=== PATIENT | male | born 1995 | race Caucasian/White ===

== ENCOUNTER 2017-06-10 13:28 | Emergency (ER) | payer OTHER ==
[~2017-06-10] VITALS: Ht 175.3 cm; Wt 68.2 kg
[2017-06-10] MEDS ORDERED: CLEO300C2 PO (15:28)
[2017-06-10 16:05] VITALS: BP 137/74
== END 2017-06-10 16:08 | disposition home or self-care (01) ==
LOC: M ED 13:28
DX: L03.211 Cellulitis of face (principal)

== ENCOUNTER 2017-06-12 11:14 | Emergency (ER) | payer OTHER ==
[~2017-06-12] VITALS: Ht 175.3 cm; Wt 72.7 kg
[~2017-06-12 11:14] MED LIST: CLEO300C2 PO
[2017-06-12 11:16] VITALS: BP 142/65
== END 2017-06-12 12:36 | disposition home or self-care (01) ==
LOC: M ED 11:14
DX: L03.211 Cellulitis of face (principal)

== ENCOUNTER 2018-12-20 10:36 | Emergency (ER) | payer OTHER ==
[~2018-12-20] VITALS: Ht 170.2 cm; Wt 71.5 kg
[2018-12-20] MEDS ORDERED: ACETAMINOPHEN 500 MG TAB PO ONE (11:00)
[2018-12-20] MEDS ORDERED: NS IV ONE (11:00)
[2018-12-20] MEDS ORDERED: DILUENT IV ONE (11:00)
[2018-12-20] MEDS ORDERED: diphenhydrAMINE INJ 50MG/ML VIAL (J1200) IV ONE (11:30)
[2018-12-20] MEDS ORDERED: KETOROLAC 30 MG/ML VIAL (J1885) IV ONE (11:30)
[2018-12-20] MEDS ORDERED: METOCLOPRAMIDE INJ 10MG/2ML VIAL (J2765) IV ONE (11:30)
[2018-12-20 12:05] LABS: BASO # 0.1 10^3/uL (0.0-0.2); BASO % 0.6 % (0.0-1.0); EOS # 0.1 10^3/uL (0.0-0.50); EOS % 0.7 % (0.0-3.0); HEMATOCRIT 37.9 % (42.0-52.0); HEMOGLOBIN 12.4 g/dl (13.5-17.5); LYMPH # 1.7 10^3/uL (1.5-6.5); LYMPH % 17.1 % (24.0-44.0); MEAN CORPUSCULAR HEMOGLOBIN 28.4 pg (27.0-33.0); MEAN CORPUSCULAR HGB CONC 32.7 g/dl (32.0-36.5); MEAN CORPUSCULAR VOLUME 86.9 fl (80.0-96.0); MONO # 1.2 10^3/uL (0.0-0.8); MONO % 11.4 % (0.0-5.0); NEUTROPHILS % 69.8 % (36.0-66.0); PLATELET COUNT, AUTOMATED 376 10^3/uL (150-450); RED BLOOD COUNT 4.36 10^6/uL (4.30-6.10); WHITE BLOOD COUNT 10.1 10^3/uL (4.0-10.0)
--- NOTE | 2018-12-20 12:12 | REP ---
CT BRAIN WITHOUT CONTRAST: CT brain performed without IV contrast. Ventricles are normal in size and position with no midline shift or mass effect. Jarvis-white differentiation is well maintained. There is no acute hemorrhage or extra-axial fluid collection. There is moderate fluid in the left sphenoid with an air-fluid level consistent with acute sinusitis. There is mild bilateral ethmoid sinusitis. IMPRESSION: Acute left sphenoid sinusitis. Mild sinusitis bilateral ethmoids. Otherwise negative noncontrast CT brain. Electronically Signed by Rob Jarvis MD 12/20/2018 03:47 P
[2018-12-20 12:25] LABS: BLOOD UREA NITROGEN 8 MG/DL (7-18); C REACTIVE PROTEIN QUANTITATIV 7.27 MG/DL (0.00-0.30); CALCIUM LEVEL 8.7 MG/DL (8.5-10.1); CARBON DIOXIDE LEVEL 31 MEQ/L (21-32); CHLORIDE LEVEL 104 MEQ/L (98-107); CREATININE FOR GFR 0.84 MG/DL (0.70-1.30); GLOMERULAR FILTRATION RATE > 60.0 (>60); GLUCOSE, FASTING 90 MG/DL (70-100); POTASSIUM SERUM 4.3 MEQ/L (3.5-5.1); SODIUM LEVEL 138 MEQ/L (136-145)
[2018-12-20 12:26] LABS: ERYTHROCYTE SEDIMENTATION RATE 60 mm/hr (0-15)
[2018-12-20 12:30] LABS: MONO SCRN NEGATIVE (NEGATIVE)
[2018-12-20 12:44] LABS: INFLUENZA A AMPLIFICATION NEGATIVE (NEGATIVE); INFLUENZA B AMPLIFICATION NEGATIVE (NEGATIVE)
[2018-12-20 13:13] VITALS: BP 124/60
--- NOTE | 2018-12-22 15:06 | ED PDOC ---
Post-Departure Follow-Up jasmin cordero faxed formal report of ct head for fu Dannielle Castro MD December 22, 2018 15:06
[2018-12-24 00:07] LABS: Lyme Disease IgG/IgM Antibodie <0.91 ISR (0.00-0.90); Lyme Disease IgM Ab Quantitati <0.80 index (0.00-0.79)
== END 2018-12-20 13:56 | disposition home or self-care (01) ==
LOC: M ED 10:36
DX: R51 Headache (principal)
CPT/HCPCS: 70450; 80048; 83605; 85025; 85652; 86140; 86308; 86617; 87040; 87502; 87880; 96374; 96375; 99284; J1200; J1885; J2765

== ENCOUNTER 2021-06-18 13:37 | Emergency (ER) | payer OTHER ==
[~2021-06-18] VITALS: Ht 172.7 cm; Wt 83.6 kg
--- OUTSIDE RECORDS SUMMARY | 2021-06-18 13:42 | CCD ---
Author Author [facility] Address Unknown Phone Unavailable Support Name Relationship Address Phone [facility] Next Of Kin [address] [address] Unavailable DELFIN SCHERER Next Of Kin [address] [place] [address] Re-disclosure Warning The records that you are about to access may contain information from federally-assisted alcohol or drug abuse programs. If such information is present, then the following federally mandated warning applies: This information has been disclosed to you from records protected by federal confidentiality rules (42 CFR part 2). The federal rules prohibit you from making any further disclosure of this information unless further disclosure is expressly permitted by the written consent of the person to whom it pertains or as otherwise permitted by 42 CFR part 2. A general authorization for the release of medical or other information is NOT sufficient for this purpose. The Federal rules restrict any use of the information to criminally investigate or prosecute any alcohol or drug abuse patient.The records that you are about to access may contain highly sensitive health information, the redisclosure of which is protected by Article 27-F of the [facility] Public Health law. If you continue you may have access to information: Regarding HIV / AIDS; Provided by facilities licensed or operated by the [facility] Office of Mental Health; or Provided by the [facility] Office for People With Developmental Disabilities. If such information is present, then the following [facility] mandated warning applies: This information has been disclosed to you from confidential records which are protected by state law. State law prohibits you from making any further disclosure of this information without the specific written consent of the person to whom it pertains, or as otherwise permitted by law. Any unauthorized further disclosure in violation of state law may result in a fine or care home sentence or both. A general authorization for the release of medical or other information is NOT sufficient authorization for further disc losure. Medications No Information Insurance Providers Payer name Policy type / Coverage type Policy ID Covered alliance party ID Covered alliance party's relationship to fry Policy Fry Plan Information [employer] [id number] [employer] [id number] Problems, Conditions, and Diagnoses No Information Surgeries/Procedures No Information Results ID Date Data Source [id number] 06/09/2021 09:14:00 AM EDT [facility] Name Value Range Interpretation Code Description Data Alva rce(s) Supporting Document(s) SARS coronavirus 2 RNA Not Detected [facility] This lab was ordered by [facility] and reported by [facility]. Procedure Social History No Information
[2021-06-18 20:53] LABS: RSV AMPLIFICATION NEGATIVE (NEGATIVE)
--- OUTSIDE RECORDS SUMMARY | 2021-06-18 21:54 | CCD ---
Author Author [facility] Address Unknown Phone Unavailable Support Name Relationship Address Phone [facility] Next Of Kin [address] [address] Unavailable DELFIN SCHERER Next Of Kin [address] [place] [address] Re-disclosure Warning The records that you are [...] is protected by Article 27-F of the [facility] Public Health law. If you continue you may have access to information: Regarding HIV / AIDS; Provided by facilities licensed or operated by the [facility] Office of Mental Health; or Provided by the [facility] Office for People With Developmental Disabilities. If such information is present, then the following [facility] mandated warning applies: This information has [...] law may result in a fine or penitentiary sentence or both. A general authorization for the release of medical or other information is NOT sufficient authorization for further disc losure. Medications No Information Insurance Providers Payer name Policy type / Coverage type Policy ID Covered republican ID Covered republican's relationship to gaines Policy Gaines Plan Information [employer] [id number] [employer] [id number] Problems, Conditions, and Diagnoses No Information Surgeries/Procedures No Information Results ID Date Data Source [id number] 06/09/2021 09:14:00 AM EDT [facility] Name Value Range Interpretation Code Description Data Alva rce(s) Supporting Document(s) SARS coronavirus [address] [facility] [place] This lab was ordered by [facility] and reported by [facility]. Procedure Social History No Information
[2021-06-18 21:57] VITALS: O2SAT 99
[2021-06-18] MEDS ORDERED: DECA4TAB PO (22:46)
[2021-06-18] MEDS ORDERED: AUGM875T28 PO (22:46)
[2021-06-18 22:56] LABS: MONO REFLEX EBV COMP NEGATIVE (NEGATIVE)
[2021-06-18 23:02] VITALS: BP 118/65
[2021-06-20 13:12] LABS: EBV AB TO NUCLEAR ANTIGEN >600.0 U/mL (0.0-17.9); EBV VIRAL CAPSID AG IgM <36.0 U/mL (0.0-35.9)
== END 2021-06-18 23:11 | disposition home or self-care (01) ==
LOC: M ED 13:37
DX: J03.90 Acute tonsillitis, unspecified (principal); Z20.822 Contact with and (suspected) exposure to COVID-19